=== PATIENT | female | born 1985 | race Two or more races ===

== ENCOUNTER 2024-09-12 05:19 | Day surgery (SDC) | payer OTHER ==
[2024-09-05 14:12] VITALS: BP 104/68
[~2024-09-12] VITALS: Ht 160 cm; Wt 56.2 kg
[2024-09-12] MEDS ORDERED: CEFAZOLIN SODIUM 1,000 MG VIAL IV ONE (10:15)
== END 2024-09-12 13:35 | disposition home or self-care (01) ==
LOC: CIR.AMB 05:19
PROVIDERS: ATTEND Surgery Surgery of the Hand
DX: S63.411 Traumatic rupture of collateral ligament of left index finger at metacarpophalangeal and interphalangeal joint (principal); S63.413A Traumatic rupture of collateral ligament of left middle finger at metacarpophalangeal and interphalangeal joint, initial encounter; S66.301A Unspecified injury of extensor muscle, fascia and tendon of left index finger at wrist and hand level, initial encounter; S66.303A Unspecified injury of extensor muscle, fascia and tendon of left middle finger at wrist and hand level, initial encounter